=== PATIENT | female | born 1975 | race Caucasian/White ===

== ENCOUNTER 2016-09-08 17:17 | Emergency (ER) | payer BC ==
[~2016-09-08] VITALS: Ht 175.3 cm; Wt 100.0 kg
[2016-09-08 17:21] VITALS: BP 135/96; PULSE 70; RESP 18; TEMP 97.8; O2SAT 98
[2016-09-08 18:05] VITALS: BP_SYST 134; BP_SYST 142; BP_DIAS 72; BP_DIAS 81; PULSE 80; RESP 16; O2SAT 99
--- NOTE | 2016-09-08 18:07 | PD ---
HPI Chief Complaint: Syncope/Near-Syncope Time Seen by Provider: 17:52 Travel History International Travel<30 days: No Contact w/Intl Traveler<30days: No Traveled to known affect area: No History of Present Illness HPI Patient is a 40-year-old female presents emergency department after a syncopal episode and complains of right shoulder tailbone pain as well as back pain throughout her entire spine. Patient states she was drinking seltzer water just prior to the event and felt a burning in her throat and the next thing she knew she was on the floor. Patient denies any chest pain shortness of breath leading up to the event. She states the next thing she knew sick people were standing over her and 911 was called. She does also have some nausea without vomiting. She has a recent history of travel on an airplane from [place]. She states this is never happened to her before. She states she does have a history of labile blood pressure in the past but usually comes on gradually and this was very sudden. PFSH Social History Tobacco Use: No Allergies-Medications (Allergen,Severity, Reaction): Coded Allergies: Codeine (Verified Allergy, Severe, itching, 09/08/16) Penicillin (Verified Allergy, Intermediate, rash, 09/08/16) Tetanus Toxoid (Verified Allergy, Intermediate, itching, 09/08/16) Reported Meds & Prescriptions Reported Meds & Active Scripts Active Reported Symbicort Inh (Budesonide/Formoterol Fumarate) 160-4.5 Mcg/Act Aero Puff INH Q12HR Zyrtec Allergy (Cetirizine HCl) 10 Mg Cap 10 Mg PO DAILY Proair Hfa 8.5 GM Inh (Albuterol Sulfate) 90 Mcg/Act Aer 1 Puff INH Q4H PRN 108 mcg/actuation Tramadol (Tramadol HCl) 50 Mg Tab 50 Mg PO Q6H PRN Review of Systems Except as stated in HPI: all other systems reviewed are Neg Physical Exam Narrative GENERAL: Well-developed well-nourished no apparent distress SKIN: Focused skin assessment warm/dry. No bruising lacerations or abrasions seen. HEAD: Atraumatic. Normocephalic. EYES: Pupils equal and round. No scleral icterus. No injection or drainage. ENT: No nasal bleeding or discharge. Mucous membranes pink and moist. NECK: Trachea midline. No JVD. CARDIOVASCULAR: Regular rate and rhythm. No murmur appreciated. RESPIRATORY: No accessory muscle use. Clear to auscultation. Breath sounds equal bilaterally. GASTROINTESTINAL: Abdomen soft, non-tender, nondistended. Hepatic and splenic margins not palpable. MUSCULOSKELETAL: No obvious deformities. No clubbing. No cyanosis. No edema. No midline CT or L-spine tenderness. Pelvis is stable. Extremities appear atraumatic. Full nontender range of motion in all 4 extremities. NEUROLOGICAL: Awake and alert and oriented, cranial nerves II through XII grossly intact and nonfocal, 5 out of 5 strength in all 4 extremity's. Certainly testing normal. Sensory is intact in all 4 extremity's. PSYCHIATRIC: Appropriate mood and affect; insight and judgment normal. Data Data Last Documented VS Vital Signs Date Time Temp Pulse Resp B/P Pulse Ox O2 Delivery O2 Flow Rate FiO2 09/08/16 22:26 68 16 146/82 100 09/08/16 18:10 Room Air 09/08/16 17:21 97.8 Orders Electrocardiogram (09/08/16 18:00) Ckmb (Isoenzyme) Profile (09/08/16 18:00) Complete Blood Count With Diff (09/08/16 18:00) Comprehensive Metabolic Panel (09/08/16 18:00) D-Dimer (09/08/16 18:00) Magnesium (Mg) (09/08/16 18:00) Troponin I (09/08/16 18:00) Chest, Single Ap (09/08/16 18:00) Ecg Monitoring (09/08/16 18:00) Bilateral Bp Monitoring (09/08/16 18:00) Oximetry (09/08/16 18:00) Oxygen Administration (09/08/16 18:00) Shoulder, Complete (>2vws) (09/08/16 ) Ketorolac Inj (Toradol Inj) (09/08/16 19:00) Ondansetron Inj (Zofran Inj) (09/08/16 19:00) Sodium Chlor 0.9% 1000 Ml Inj (Ns 1000 M (09/08/16 19:00) CKMB (09/08/16 18:10) CKMB% (09/08/16 18:10) Ct Brain W/O Iv Contrast(Rout) (09/08/16 ) Ct Pulmonary Angiogram (09/08/16 ) Iohexol 350 Inj (Omnipaque 350 Inj) (09/08/16 20:02) Labs Laboratory Tests Test 09/08/16 18:10 White Blood Count 7.9 TH/MM3 Red Blood Count 4.56 MIL/MM3 Hemoglobin 13.0 GM/DL Hematocrit 39.2 % Mean Corpuscular Volume 85.9 FL Mean Corpuscular Hemoglobin 28.6 PG Mean Corpuscular Hemoglobin 33.3 % Concent Red Cell Distribution Width 13.5 % Platelet Count 155 TH/MM3 Mean Platelet Volume 8.5 FL Neutrophils (%) (Auto) 75.4 % Lymphocytes (%) (Auto) 16.7 % Monocytes (%) (Auto) 6.1 % Eosinophils (%) (Auto) 1.3 % Basophils (%) (Auto) 0.5 % Neutrophils # (Auto) 6.0 TH/MM3 Lymphocytes # (Auto) 1.3 TH/MM3 Monocytes # (Auto) 0.5 TH/MM3 Eosinophils # (Auto) 0.1 TH/MM3 Basophils # (Auto) 0.0 TH/MM3 CBC Comment DIFF FINAL Differential Comment D-Dimer Quantitative (PE/DVT) 0.52 MG/L FEU Sodium Level 142 MEQ/L Potassium Level 4.6 MEQ/L Chloride Level 108 MEQ/L Carbon Dioxide Level 27.5 MEQ/L Anion Gap 7 MEQ/L Blood Urea Nitrogen 11 MG/DL Creatinine 1.08 MG/DL Estimat Glomerular Filtration 57 ML/MIN Rate Random Glucose 94 MG/DL Calcium Level 8.6 MG/DL Magnesium Level 2.0 MG/DL Total Bilirubin 0.3 MG/DL Aspartate Amino Transf 49 U/L (AST/SGOT) Alanine Aminotransferase 121 U/L (ALT/SGPT) Alkaline Phosphatase 72 U/L Total Creatine Kinase 174 U/L Creatine Kinase MB 1.4 NG/ML Troponin I LESS THAN 0.02 NG/ML Total Protein 6.8 GM/DL Albumin 3.8 GM/DL MDM Medical Decision Making Medical Screen Exam Complete: Yes Emergency Medical Condition: Yes Interpretation(s) EKG shows normal sinus rhythm normal axis normal R-wave progression, no concerning ST T changes, intervals within normal limits, this is normal EKG. Differential Diagnosis Anemia, syncope, cardiogenic syncope unlikely, electro-light abnormality, back pain, head injury, Narrative Course Patient's C-spine is cleared by [facility]. Given her prolonged stasis history during the flight d-dimer is indicated. At fairly low index suspicion for PE in this patient. D-dimer does come back positive and CT PE protocol is indicated: Last 24 hours Impressions Chest X-Ray 09/08/16 1800 Signed Impressions: Service Date/Time: Thursday, September 08, 2016 18:34 - CONCLUSION: No acute disease. Luis Aquino MD Shoulder X-Ray 09/08/16 0000 Signed Impressions: Service Date/Time: Thursday, September 08, 2016 18:27 - CONCLUSION: No acute bony injury Luis Aquino MD Head CT 09/08/16 0000 Signed Impressions: Service Date/Time: Thursday, September 08, 2016 19:42 - CONCLUSION: Normal examination. Luis Aquino MD CT Angiography 09/08/16 0000 Signed Impressions: Service Date/Time: Thursday, September 08, 2016 19:47 - CONCLUSION: No evidence of pulmonary embolism Luis Aquino MD The remainder of her initial workup is within normal limits, troponin negative, lecture lites within normal limits, EKG negative. Patient is stable for discharge at this time. There is no indication for imaging of her back. Patient is ambulated in the emergency department multiple times. She would like to go home and follow-up with her physician in [place] which is here. Discussed with her return to ED criteria. It is possible that she did have a seizure this was discussed with her however she's never had seizures before and this was unwitnessed. Either if this was the first onset seizure or syncopal episode she is stable to pursue outpatient workup and treatment at this time. Diagnosis Primary Impression: Syncope Qualified Code: R55 - Syncope, unspecified syncope type Referrals: Facundo Lewis MD Additional Instructions: Follow-up with your primary care provider or the [facility]. Disposition: 01 DISCHARGE HOME Condition: Stable Chuck Waldrop MD Sep 08, 2016 18:06
[2016-09-08 18:10] VITALS: RESP 16; O2SAT 98
[2016-09-08] MEDS ORDERED: SYMB160A INH (18:31)
[2016-09-08] MEDS ORDERED: ZYRT10CA PO (18:31)
[2016-09-08] MEDS ORDERED: TRAM50TA PO (18:31)
[2016-09-08] MEDS ORDERED: ALBUAER3 INH (18:31)
[2016-09-08 18:34] LABS: BASOPHIL % 0.5 % (0.0-2.0); EOSINOPHIL # 0.1 TH/MM3 (0-0.4); EOSINOPHIL % 1.3 % (0.0-4.0); HEMATOCRIT 39.2 % (35.0-46.0); HEMO FLAGS DIFF FINAL; LYMPH % 16.7 % (9.0-44.0); LYMPHOCYTE # 1.3 TH/MM3 (1.0-4.8); MEAN CELL VOLUME 85.9 FL (80.0-100.0); MEAN CORPUSCULAR HEMOGLOBIN 28.6 PG (27.0-34.0); MEAN CORPUSCULAR HGB CONC 33.3 % (32.0-36.0); MONO % 6.1 % (0.0-8.0); NEUT % 75.4 % (16.0-70.0); PLATELET COUNT 155 TH/MM3 (150-450); RED BLOOD COUNT 4.56 MIL/MM3 (4.00-5.30); RED CELL DISTRIBUTION WIDTH 13.5 % (11.6-17.2); WHITE BLOOD COUNT 7.9 TH/MM3 (4.0-11.0)
[2016-09-08 18:48] LABS: ALT (GPT) 121 U/L (10-53); ANION GAP 7 MEQ/L (5-15); AST (GOT) 49 U/L (15-37); BICARBONATE 27.5 MEQ/L (21.0-32.0); BLOOD UREA NITROGEN 11 MG/DL (7-18); CHLORIDE 108 MEQ/L (98-107); GLOMERULAR FILTRATION RATE 57 ML/MIN (>89); POTASSIUM 4.6 MEQ/L (3.5-5.1); SODIUM (NA) 142 MEQ/L (136-145)
[2016-09-08 18:52] LABS: ALKALINE PHOSPHATASE 72 U/L (45-117); CREATINE KINASE 174 U/L (26-192); TOTAL BILIRUBIN ADULT 0.3 MG/DL (0.2-1.0)
[2016-09-08] MEDS ORDERED: KETOROLAC TROMETHAMINE 30 MG/ML (IVP) VIAL IV PUSH ONE (19:00)
[2016-09-08] MEDS ORDERED: ONDANSETRON HCL 4 MG/2 ML VIAL IV PUSH ONE (19:00)
[2016-09-08] MEDS ORDERED: SODIUM CHLOR 0.9% 1000 ML INJ 1,000 ML IV ONE (19:00)
[2016-09-08 19:05] LABS: CKMB 1.4 NG/ML (0.5-3.6)
--- NOTE | 2016-09-08 19:55 | RADRPT ---
EXAM DATE/TIME: 09/08/2016 18:34 [facility] COMPARISON: No previous studies available for comparison. INDICATIONS : Syncopal episode today MEDICAL HISTORY : None. SURGICAL HISTORY : None. ENCOUNTER: Initial ACUITY: 1 day PAIN SCORE: 0/10 LOCATION: Bilateral chest FINDINGS: A single view of the chest demonstrates the lungs to be symmetrically aerated without evidence of mas s, infiltrate or effusion. The cardiomediastinal contours are unremarkable. Osseous structures are intact. CONCLUSION: No acute disease. Luis Aquino MD on September 08, 2016 at 19:53 Board Certified Radiologist. This report was verified electronically.
--- NOTE | 2016-09-08 19:55 | RADRPT ---
EXAM DATE/TIME: 09/08/2016 18:27 [facility] COMPARISON: No previous studies available for comparison. INDICATIONS : Right shoulder pain after syncopal episode, fall today MEDICAL HISTORY : None. SURGICAL HISTORY : None. ENCOUNTER: Initial ACUITY: 1 day PAIN SCORE: 10/10 LOCATION: Right posterior shoulder FINDINGS: The glenohumeral relationship is satisfactory. There is no evidence of fracture. The adjacent clavicl e and ribs appear intact. CONCLUSION: No acute bony injury Luis Aquino MD on September 08, 2016 at 19:52 Board Certified Radiologist. This report was verified electronically.
[2016-09-08] MEDS ORDERED: IOHEXOL 350 MG/ML 10 ML VIAL (for RAD DIAG) IV ONE (20:02)
--- NOTE | 2016-09-08 20:12 | RADRPT ---
EXAM DATE/TIME: 09/08/2016 19:47 [facility] COMPARISON: No previous studies available for comparison. INDICATIONS : Syncope, nausea and vomiting. IV CONTRAST: 75 cc Omnipaque 350 (iohexol) IV RADIATION DOSE: 17.62 CTDIvol (mGy) MEDICAL HISTORY : None SURGICAL HISTORY : None. ENCOUNTER: Initial ACUITY: 1 day PAIN SCALE: 5/10 LOCATION: chest TECHNIQUE: Volumetric scanning of the chest was performed using a pulmonary embolism protocol MIP images were re constructed. Using automated exposure control and adjustment of the mA and/or kV according to patien t size, radiation dose was kept as low as reasonably achievable to obtain optimal diagnostic quality images. FINDINGS: PULMONARY ARTERIES: No filling defects are seen in the pulmonary arteries through the segmental level. LUNGS: Minimal posterior basilar atelectasis. PLEURAE: There is no pleural thickening or pleural effusion. MEDIASTINUM: There is good visualization of the great vessels of the middle mediastinum. No evidence of mediastin al or hilar adenopathy/mass. MUSCULOSKELETAL: Within normal limits for patient age. MISCELLANEOUS: The visualized upper abdominal organs demonstrate no acute abnormality. CONCLUSION: No evidence of pulmonary embolism Luis Aquino MD on September 08, 2016 at 20:08 Board Certified Radiologist. This report was verified electronically.
--- NOTE | 2016-09-08 20:37 | RADRPT ---
EXAM DATE/TIME: 09/08/2016 19:42 [facility] COMPARISON: No previous studies available for comparison. INDICATIONS : Syncope, nausea and vomiting. RADIATION DOSE: 56.35 CTDIvol (mGy) MEDICAL HISTORY : None SURGICAL HISTORY : None. ENCOUNTER: Initial ACUITY: 1 day PAIN SCALE: 5/10 LOCATION: cranial TECHNIQUE: Multiple contiguous axial images were obtained of the head. Using automated exposure control and adj ustment of the mA and/or kV according to patient size, radiation dose was kept as low as reasonably a chievable to obtain optimal diagnostic quality images. FINDINGS: CEREBRUM: The ventricles are normal for age. No evidence of midline shift, mass lesion, hemorrhage or acute in farction. No extra-axial fluid collections are seen. POSTERIOR FOSSA: The cerebellum and brainstem are intact. The 4th ventricle is midline. The cerebellopontine angle i s unremarkable. EXTRACRANIAL: The visualized portion of the orbits is intact. SKULL: The calvaria is intact. No evidence of skull fracture. CONCLUSION: Normal examination. Luis Aquino MD on September 08, 2016 at 20:35 Board Certified Radiologist. This report was verified electronically.
[2016-09-08 22:26] VITALS: BP 146/82
--- NOTE | 2016-09-09 15:31 | EKG ---
Date Performed: 09/08/2016 Time Performed: 18:18:53 PTAGE: 40 years EKG: Sinus rhythm NORMAL ECG WARNING: DATA QUALITY MAY AFFECT INTERPRETATION NO PREVIOUS TRACING DOCTOR: Toby Longoria Interpretating Date/Time 09/09/2016 15:28:59
== END 2016-09-08 22:27 | disposition home or self-care (01) ==
LOC: NEPD 17:17
DX: R55 Syncope and collapse (principal); M25.511 Pain in right shoulder; M53.3 Sacrococcygeal disorders, not elsewhere classified; M54.9 Dorsalgia, unspecified; R11.0 Nausea; R09.89 Other specified symptoms and signs involving the circulatory and respiratory systems
CPT/HCPCS: 70450; 71010; 71275; 73030; 80053; 82550; 82552; 83735; 84484; 85025; 85379; 93005; 96374; 96375; 99285; J1885; J2405; J7030; Q9967